=== PATIENT | female | born 1955 | race Caucasian/White ===

== ENCOUNTER 2016-10-13 01:27 | Emergency (ER) | payer OTHER ==
[~2016-10-13] VITALS: Ht 170.2 cm; Wt 90.9 kg
[2016-10-13 01:30] VITALS: Ht 170.2 cm; Wt 90.9 kg
[2016-10-13] MEDS ORDERED: HYDROmorphONE 1 MG/ML SYG IV STA (01:37)
--- NOTE | 2016-10-13 02:22 | RADRPT ---
PROCEDURE: XR Hip. CLINICAL INDICATION: Right hip pain. TECHNIQUE: AP and frog lateral views of the right hip were performed. COMPARISON: None. FINDINGS: Plate and screw fixation at the right iliac and acetabulum. Screw fixator at the superior right elma tabular has backed out of medial plate fixator, suggesting a hardware complication. Demineralization limits evaluation of fine osseous detail. No evident acute fracture. Post-traumat ic changes at the roof of the right acetabulum. Vascular clips over the pelvis. Soft tissues otherwise unremarkable. IMPRESSION: 1. Screw fixator at the superior right acetabulum has backed out of the medial plate fixator, sugge sting a hardware complication. 2. Otherwise, no evident hardware complications identified on this series. 3. Degenerative changes in the right hip with post-traumatic changes in the right acetabulum. 4. Demineralization limits evaluation of fine osseous detail, and otherwise, no evident acute fract ure. RPTAT: [facility] Physician Partha Date Time Electronically viewed and signed by Physician Partha on 10/13/2016 02:21 RS/
[2016-10-13] MEDS: ONDANSETRON 4 MG INJ IV STA ×2 (02:23→02:47)
--- NOTE | 2016-10-13 02:23 | RADRPT ---
PROCEDURE: XR Chest. CLINICAL INDICATION: Chest Pain. TECHNIQUE: Single frontal view of the chest. COMPARISON: None. FINDINGS: Cardiomegaly. The lungs are clear. No signs of pleural fluid or pneumothorax are seen. The osseous s tructures and soft tissues are unremarkable. Total left shoulder arthroplasty without evident hardware complication to the limited extent visuali zed. Demineralization limits evaluation of fine osseous detail. Multiple healed right rib fractures. Remaining osseous structures are unremarkable. IMPRESSION: No evidence for active cardiopulmonary disease. RPTAT: [facility] Physician Partha Date Time Electronically viewed and signed by Physician Partha on 10/13/2016 02:23 RS/
[2016-10-13] MEDS ORDERED: AMLO5TAB4 PO (02:25)
[2016-10-13] MEDS ORDERED: FAMO40TA52 PO (02:25)
[2016-10-13] MEDS ORDERED: ATEN50TA PO (02:25)
[2016-10-13] MEDS ORDERED: HYDR-906 PO (02:25)
[2016-10-13] MEDS ORDERED: TRAZ100T15 PO (02:25)
[2016-10-13] MEDS ORDERED: NPH,100V SQ ×2 (02:25)
[2016-10-13] MEDS ORDERED: [UNRECOGNIZED DRUG - CODE] MC (02:25)
[2016-10-13] MEDS ORDERED: IRON1TAB PO (02:25)
[2016-10-13 02:26] LABS: ADD SCAN DIFF NO
[2016-10-13 02:27] LABS: BASOPHILS % 0.5 % (0.0-2.0); EOSINOPHILS # 0.3 10^3/ul (0.0-0.5); HEMATOCRIT 27.2 % (37.0-47.0); HEMOGLOBIN 8.9 g/dl (12.0-16.0); LYMPHOCYTES % 26.7 % (15.0-51.0); MEAN CORPUSCULAR HEMOGLOBIN 27.6 pg (29.0-33.0); MEAN CORPUSCULAR HGB CONC 32.7 g/dl (32.0-37.0); MEAN CORPUSCULAR VOLUME 84.2 fl (82.0-101.0); MEAN PLATELET VOLUME 10.9 fl (7.4-10.4); MONOCYTE # 0.6 10^3/ul (0.3-0.9); MONOCYTES % 8.2 % (0.0-11.0); NEUTROPHIL # 4.4 10^3/ul (1.6-7.5); NEUTROPHILS % 60.3 % (39.0-77.0); PLATELET COUNT 237 10^3/UL (140-415); RED BLOOD COUNT 3.23 10^6/ul (4.20-5.40); RED CELL DISTRIBUTION WIDTH 14.8 % (11.5-14.5); WHITE BLOOD COUNT 7.3 10^3/ul (4.8-10.8)
[2016-10-13 02:41] LABS: ALBUMIN 3.6 g/dl (3.3-4.9); CHLORIDE 102 mmol/L (97-110); SODIUM 142 mmol/L (135-144)
[2016-10-13 02:42] LABS: INR 0.91; PROTIME 12.3 Sec (12.2-14.2)
[2016-10-13 02:43] LABS: CREATININE 1.29 mg/dl (0.44-1.00); PARTIAL THROMBOPLASTIN TIME 24.7 Sec (25.0-35.0)
[2016-10-13 02:44] LABS: ALANINE AMINOTRANSFERASE 25 IU/L (13-69); ALBUMIN/GLOBULIN RATIO 0.94; ALKALINE PHOSPHATASE 87 IU/L (42-121); ANION GAP 15 (8-16); ASPARTATE AMINO TRANSFERASE 14 IU/L (15-46); BILIRUBIN,INDIRECT 0.3 mg/dl (0-1.1); BILIRUBIN,TOTAL 0.3 mg/dl (0.2-1.3); BLOOD UREA NITROGEN 28 mg/dl (7-20); CARBON DIOXIDE 29 mmol/L (21-31); GLUCOSE 194 mg/dl (70-220); TOTAL PROTEIN 7.4 g/dl (6.1-8.1)
[2016-10-13 02:53] LABS: B-TYPE NATRIURETIC PEPTIDE 529 PG/ML (0-125)
[2016-10-13] MEDS ORDERED: LORAZEPAM 2 MG INJ IM ONE (03:00)
[2016-10-13 03:05] LABS: TROPONIN-I < 0.012 ng/ml (0.00-0.12)
--- NOTE | 2016-10-13 05:59 | ERA ---
ER Documentation Chief Complaint Date/Time DATE: 10/13/16 TIME: 05:57 Chief Complaint SHARDA RA 889 from home,c/o right hip pain,Post patient,hx fall HPI This is a 52 year female consequence of chest pain and right hip pain. Right hip pain is chronic. Patient complains of chest pain is mild to moderate intensity. Blood pressure is not to be severely elevated. No nausea no vomiting no fevers no chills no diaphoresis. No other current complaints. ROS All systems reviewed and are negative except as per history of present illness. Medications Home Meds Reported Medications Iron Ag&Fum/C/Fa/Mv Cmb11/Ca-T (FERREX 28 TABLET) 1 Each Tablet, 1 EACH PO, TAB 10/13/16 Magnesium Carbonate (Magnesium Carbonate) 500 Gm Powder, 500 GM MC 10/13/16 Trazodone Hcl* (Trazodone Hcl*) 100 Mg Tablet, 100 MG PO QHS, #30 TAB 10/13/16 Hydrocodone/Acetaminophen ([place] 5-325 Tablet) 1 Each Tablet, 1 EACH PO, TAB 10/13/16 Famotidine* (Famotidine*) 40 Mg Tablet, 40 MG PO BID, #60 TAB 10/13/16 Atenolol* (Atenolol*) Unknown Strength Tablet, 0 PO QAM, #30 TAB 10/13/16 Amlodipine Besylate* (Norvasc*) 5 Mg Tablet, 5 MG PO BID, TAB 10/13/16 Insulin NPH Human Isophane (Humulin N) 100 Unit/1 Ml Vial, 40 UNIT SQ QPM, VIAL 10/13/16 Insulin NPH Human Isophane (Humulin N) 100 Unit/1 Ml Vial, 50 UNIT SQ QAM, VIAL 10/13/16 Allergies Allergies: Coded Allergies: Penicillins (Verified Allergy, Unknown, 10/13/16) metformin (Verified Allergy, Unknown, 10/13/16) PMhx/Soc History of Surgery: Yes (L shoulder, elbow, R hip) Anesthesia Reaction: No Hx Neurological Disorder: No Hx Respiratory Disorders: No Hx Cardiac Disorders: Yes (HTN) Hx Psychiatric Problems: No Hx Miscellaneous Medical Probl: Yes (DM2, osteomyelitis) Hx Alcohol Use: No Hx Substance Use: No Hx Tobacco Use: No Smoking Status: Never smoker Physical Exam Vitals Vital Signs Date Time Temp Pulse Resp B/P Pulse Ox O2 Delivery O2 Flow Rate FiO2 10/13/16 04:23 98.4 66 22 178/86 98 Room Air 10/13/16 01:30 99.1 68 18 235/106 100 Physical Exam Const: [] Head: Atraumatic Eyes: Normal Conjunctiva ENT: Normal External Ears, Nose and Mouth. Neck: Full range of motion..~ No meningismus. Resp: Clear to auscultation bilaterally Cardio: Regular rate and rhythm, no murmurs Abd: Soft, non tender, non distended. Normal bowel sounds Skin: No petechiae or rashes Back: No midline or flank tenderness Ext: No cyanosis, or edema Neur: Awake and alert Psych: Normal Mood and Affect Result Diagram: 10/13/1621910/13/16219 Results 24 hrs Laboratory Tests Test 10/13/16 02:20 White Blood Count 7.310^3/ul Red Blood Count 3.2310^6/ul Hemoglobin 8.9g/dl Hematocrit 27.2% Mean Corpuscular Volume 84.2fl Mean Corpuscular Hemoglobin 27.6pg Mean Corpuscular Hemoglobin Concent 32.7g/dl Red Cell Distribution Width 14.8% Platelet Count 37269^3/UL Mean Platelet Volume 10.9fl Neutrophils % 60.3% Lymphocytes % 26.7% Monocytes % 8.2% Eosinophils % 4.0% Basophils % 0.5% Nucleated Red Blood Cells % 0.0/100WBC Neutrophils # 4.410^3/ul Lymphocytes # 2.010^3/ul Monocytes # 0.610^3/ul Eosinophils # 0.310^3/ul Basophils # 0.010^3/ul Nucleated Red Blood Cells # 0.010^3/ul Prothrombin Time 12.3Sec Prothrombin Time Ratio 1.0 INR International Normalized Ratio 0.91 Activated Partial Thromboplast Time 24.7Sec Sodium Level 142mmol/L Potassium Level 4.0mmol/L Chloride Level 102mmol/L Carbon Dioxide Level 29mmol/L Anion Gap 15 Blood Urea Nitrogen 28mg/dl Creatinine 1.29mg/dl Glucose Level 194mg/dl Calcium Level 9.0mg/dl Total Bilirubin 0.3mg/dl Direct Bilirubin 0.00mg/dl Indirect Bilirubin 0.3mg/dl Aspartate Amino Transf (AST/SGOT) 14IU/L Alanine Aminotransferase (ALT/SGPT) 25IU/L Alkaline Phosphatase 87IU/L Troponin I < 0.012ng/ml B-Type Natriuretic Peptide 529PG/ML Total Protein 7.4g/dl Albumin 3.6g/dl Globulin 3.80g/dl Albumin/Globulin Ratio 0.94 Lipase 17U/L Current Medications Medications (Trade) Dose Ordered Sig/Alexa Route PRN Reason Start Time Stop Time Status Last Admin Dose Admin Hydromorphone HCl (Dilaudid) 1 mg ONCE STAT IV 10/13/16 01:37 10/13/16 01:38 DC 10/13/16 02:08 Ondansetron HCl (Zofran Inj) 4 mg ONCE STAT IV 10/13/16 01:37 10/13/16 01:38 DC 10/13/16 02:47 Lorazepam (Ativan) 1 mg ONCE ONCE IM 10/13/16 03:00 10/13/16 03:01 DC 10/13/16 02:55 Procedures/MDM EKG: Rate/Rhythm: [Normal Sinus Rhythm] QRS, ST, T-waves: [No changes consistent w/ acute ischemia] Impression: [No evidence of ischemia or arrhythmia] Chest X-ray 1V Interpreted by me: Soft Tissue: No acute abnormalities Bones: No acute abnormalities Mediastinum/Cardiac Silhouette/Lungs: [No acute abnormalities] Patient's symptoms are concerning for cardiac cause will require inpatient workup and continuous monitoring. Further w/u for ischemia, arrhythmia, PE or dissection will be deferred to the inpatient team. Accepting Care Team: Current data and ongoing care discussed. Patient to be transferred to [place] Time: 5:45 AM Primary Provider: Sincere Consulting: [XOXOXO] Outstanding Data: none Critical Care: Time: 45 minutes Treatments/Evaluations: Close monitoring and treatment of unstable vital signs, cardiorespiratory, and neurologic status, while maintaining tight balance of fluid, respiratory, and cardiac interventions. Departure Diagnosis: Primary Impression: Hip pain Qualified Code: M25.551 - Pain of right hip joint Additional Impressions: Chest pain Qualified Code: R07.9 - Chest pain, unspecified type Accelerated hypertension Condition: Serious CAMERON MENSAHEL Sammie October 13, 2016 05:59
[2016-10-13] MEDS ORDERED: HYDROmorphONE 1 MG/ML SYG IM STA (06:09)
[2016-10-13 07:23] VITALS: BP 166/88; PULSE 82; RESP 19; TEMP 98.2
== END 2016-10-13 07:24 | disposition short-term general hospital (02) ==
LOC: E/R 01:27
DX: M25.551 Pain in right hip (principal); R07.9 Chest pain, unspecified; I10 Essential (primary) hypertension; E11.9 Type 2 diabetes mellitus without complications; Z79.4 Long term (current) use of insulin
CPT/HCPCS: 71010; 73510; 80053; 82962; 83690; 83880; 84484; 85025; 85610; 85730; 93005; J1170; J2060; J2405